=== PATIENT | male | born 1970 | race African-American/Black ===

== ENCOUNTER 2018-06-09 15:33 | Emergency (ER) | payer OTHER ==
[2018-06-09] MEDS ORDERED: Albuterol/Ipratropium NEB.SOL* Albuterol 2.5 MG/Ipratropium 0.5 MG 3 ML INH ONE (15:46)
--- NOTE | 2018-06-09 15:48 | ED ---
Respiratory - HPI Summary HPI Summary: 48-year-old male presents with cough for the past 3 days. He states he has a history of asthma. He states he just doesn't feel right. He admits occasional chest tightness. He admits shortness breath. No abdominal pain. Denies any nausea, vomiting, or diarrhea. Denies any headache. Denies any sore throat. He admits to sinus congestion. He is a smoker. He denies any pain or swelling in calf muscles. he denies any known fever. He states the cough is productive. no one else is sick. - History of Current Complaint Chief Complaint: EDUpperRespComplaint Stated Complaint: COUGH Time Seen by Provider: 06/09/18 15:38 Pain Intensity: 0 - Allergy/Home Medications Allergies/Adverse Reactions: Allergies Allergy/AdvReac Type Severity Reaction Status Date / Time No Known Allergies Allergy Verified 06/09/18 15:37 PMH/Surg Hx/FS Hx/Imm Hx Endocrine/Hematology History: Denies: Hx Anticoagulant Therapy Respiratory History: Reports: Hx Asthma Infectious Disease History: No Infectious Disease History: Denies: Traveled Outside the [place] in Last 30 Days - Family History Known Family History: Positive: Unknown - Social History Alcohol Use: None Substance Use Type: Reports: None Smoking Status (MU): Light Every Day Tobacco Smoker Have You Smoked in the Last Year: No Review of Systems Negative: Fever Positive: Chest Pain Positive: Shortness Of Breath, Cough Negative: Abdominal Pain All Other Systems Reviewed And Are Negative: Yes Physical Exam Triage Information Reviewed: Yes Vital Signs On Initial Exam: Initial Vitals Temp Pulse Resp BP Pulse Ox 97.6 F 80 20 142/79 100 06/09/18 15:35 06/09/18 15:35 06/09/18 15:35 06/09/18 15:35 06/09/18 15:35 Vital Signs Reviewed: Yes Appearance: Positive: Well-Appearing Skin: Positive: Warm, Dry Head/Face: Positive: Normal Head/Face Inspection Eyes: Positive: Normal, EOMI, JAQUELINE, Conjunctiva Clear ENT: Positive: Pharynx normal, TMs normal Respiratory/Lung Sounds: Positive: Breath Sounds Present, Decreased Breath Sounds Cardiovascular: Positive: Normal, RRR Abdomen Description: Positive: Nontender, Soft Bowel Sounds: Positive: Present Musculoskeletal: Positive: Normal Neurological: Positive: Normal Psychiatric: Positive: Normal Diagnostics - Vital Signs Vital Signs Temp Pulse Resp BP Pulse Ox 06/09/18 15:35 97.6 F 80 20 142/79 100 - Laboratory Result Diagrams: 06/09/18 15:02 06/09/18 15:02 Lab Statement: Any lab studies that have been ordered have been reviewed, and results considered in the medical decision making process. - Radiology chest Radiology Interpretation Completed By: Radiologist Summary of Radiographic Findings: IMPRESSION: #. No evidence for pneumonia. # . Elevated lung volumes may reflect obstructive lung disease or simply exuberant. inspiratory effort for examination. - EKG No standard instances Cardiac Rate: NL EKG Rhythm: Sinus Rhythm Summary of EKG Findings: sinus rhythm Re-Evaluation - Re-Evaluation First Eval Re-Evaluation Time: 16:46 Change: Improved Comment: feeling a bit better after treatment Disposition - Course Course Of Treatment: 48-year-old male presents with cough for the past 3 days. He states he has a history of asthma. He states he just doesn't feel right. He admits occasional chest tightness. He admits shortness breath. No abdominal pain. Denies any nausea, vomiting, or diarrhea. Denies any headache. Denies any sore throat. He admits to sinus congestion. He is a smoker. He denies any pain or swelling in calf muscles. On exam decreased breath sounds heard. Pharynx normal. Sinus congestion noted. Abdomen soft nontender. ekg sinus rhythm. chest xray copd. wbc normal. troponin zero. bnp normal. gave breathing treatment and steriod. will treat with steriod and tessalon. patient understand and agrees with plan. - Differential Dx - Cardiopulmonary Differential Diagnoses - Cardiopulmonary: Bronchitis, Influenza, Lower Resp Infection - Diagnoses Provider Diagnoses: Bronchitis Discharge - Sign-Out/Discharge Documenting (check all that apply): Patient Departure - Discharge Plan Condition: Good Disposition: HOME Prescriptions: Benzonatate CAP* [Tessalon 100 MG CAP*] 100 mg PO TID PRN #21 cap PRN Reason: Cough predniSONE TAB* [Deltasone TAB*] 50 mg PO DAILY #4 tab Patient Education Materials: Acute Bronchitis (ED) Referrals: Frannie Campbell MD [Primary Care Provider] - Additional Instructions: Use inhaler up to two puffs every 4 hours for cough and wheezing Take steroid once a day for 4 more days starting tomorrow Take tessalon three times a day as needed for cough Take Tylenol or ibuprofen for pain every 6 hours use nasal saline in nose for nasal congestion Follow up with primary within 5 days Return to ED if develop any new or worsening symptoms - Billing Disposition and Condition Condition: GOOD Disposition: Home
[2018-06-09 16:12] LABS: Hematocrit 45 % (42-52); Hemoglobin 15.7 g/dl (14.0-18.0); Mean Corpuscular HGB Conc 35 g/dl (31-36); Mean Corpuscular Hemoglobin 33 pg (27-31); Mean Corpuscular Volume 94 fL (80-94); Mean Platelet Volume 7.5 fL (7.4-10.4); Platelet Count 291 10^3/ul (150-450); Red Blood Count 4.83 10^6/ul (4.00-5.40); Red Cell Distribution Width 13 % (10.5-15)
[2018-06-09 16:14] LABS: ABS Basophils 0.1 10^3/ul (0-0.2); ABS Eosinophils 0 10^3/ul (0-0.6); ABS Monocytes 0.9 10^3/ul (0-0.8); ABS Neutrophils 1.9 10^3/ul (1.5-7.7); ABS Nucleated RBC 0 10^3/ul; Eosinophil % 1.2 %; Lymphocyte % 25.8 %; Nucleated Red Blood Cells % 0
[2018-06-09 16:27] LABS: Albumin 4.6 g/dL (3.2-5.2); Albumin/Globulin Ratio 1.4 (1-3); BUN/Creatinine Ratio 6.7 (8-20); Calcium 9.6 mg/dL (8.6-10.3); EGFR Non-African American 75.6 (>60); Globulin 3.3 g/dL (2-4); Potassium 4.1 mmol/L (3.5-5.0); Total Bilirubin 0.6 mg/dL (0.2-1.0); Total Protein 7.9 g/dL (6.4-8.9)
[2018-06-09] MEDS ORDERED: predniSONE TAB* 20 MG PO ONE (16:27)
[2018-06-09] MEDS ORDERED: Benzonatate CAP* 100 MG PO ONE (16:44)
[2018-06-09 17:26] VITALS: BP 106/76
== END 2018-06-09 17:26 | disposition home or self-care (01) ==
LOC: ED 15:33
DX: J40 Bronchitis, not specified as acute or chronic (principal); Z72.0 Tobacco use; J45.909 Unspecified asthma, uncomplicated
CPT/HCPCS: 36415; 71046; 80053; 83880; 84484; 85025; 93005; 99282; A9270-GY; J7512